=== PATIENT | female | born 2000 | race Caucasian/White ===

== ENCOUNTER 2021-08-31 09:02 | Emergency (ER) | payer SELFPAY ==
[2021-08-31 11:25] LABS: BASOPHIL 0.4 % (0-2); EOSINOPHIL 0.6 % (0-5); HGB 13.7 g/dl (12.5-16.0); LYMPHOCYTE 26.7 % (15-48); MCH 29.3 pg (25.0-31.0); MCHC 32.6 g/dL (32.0-36.0); MCV 89.7 fL (78.0-100.0); MONOCYTE 6.3 % (0-12); MPV 11.3 fL (6.0-9.5); NEUTROPHIL 65.8 % (41-80); NRBC 0; PLT 265 K/uL (150-400); RBC 4.68 M/uL (4.20-5.40); WBC 11.2 K/uL (4.0-10.5)
[2021-08-31 11:53] LABS: ALBUMIN 3.9 g/dL (3.4-5.0); BILIRUBIN - TOTAL 0.4 mg/dL (0.2-1.0); BUN/CREAT RATIO (CALC) 20.9 RATIO; CREATININE 0.43 mg/dL (0.51-0.95); GLOBULIN (CALCULATION) 3.6 g/dL; POTASSIUM 4.5 mmol/L (3.5-5.1); TOTAL PROTEIN 7.5 g/dL (6.4-8.2)
[2021-08-31 12:10] LABS: BILIRUBIN NEGATIVE (NEGATIVE); BLOOD NEGATIVE Ery/uL (NEGATIVE); CLARITY CLEAR (CLEAR); COLOR YELLOW (YELLOW); GLUCOSE (U) NORMAL (NORMAL); LEUKOCYTES NEGATIVE Leu/uL (NEGATIVE); NITRITE POSITIVE (NEGATIVE); PROTEIN NEGATIVE (NEGATIVE); SPECIFIC GRAVITY 1.025 (1.001-1.030); UROBILINOGEN 0.2 mg/dL (0.2-1.0); pH 7.5 (5.0-9.0)
[2021-08-31 12:34] LABS: BACTERIA 3+; URINARY RBC RARE
[2021-08-31] MEDS ORDERED: PROCTOZONE-HC 230 GM TOP (13:36)
[2021-08-31] MEDS ORDERED: NITROFURANTOIN100 M1 PO (13:36)
== END 2021-08-31 13:47 | disposition home or self-care (01) ==
LOC: FER 09:02
PROVIDERS: Emergency Medicine
DX: K64.9 Unspecified hemorrhoids (principal); R82.71 Bacteriuria; F17.210 Nicotine dependence, cigarettes, uncomplicated
CPT/HCPCS: 36415; 80053; 81001; 84145; 85025; J7030